=== PATIENT | female | born 1940 | race African-American/Black ===

== ENCOUNTER → 2021-01-03 | Outpatient (CLI) | payer OTHER, MEDICARE ==
[~2021-01-03] VITALS: Ht 172.7 cm; Wt 120.2 kg
[~2021-01-03] MED LIST: BETIMOL5 ML EA. EYE; BYSTOLIC10 MG PO; CALCIUM 500 +1 EAC5 PO; CENTRUM SILVER1 EAC5 PO; FISH OIL 1,001000 M2 PO; GLUCOSAMINE CH1 EAC2 PO; HYDROCHLOROTH12.5 M2 PO; LOSARTAN-HCTZ1 EAC3 PO; LOW DOSE ASPIRI81 M1 PO; NORVASC10 MG PO; RESVERATROL50 MG PO; ROSUVASTATIN CA10 MG PO; TUMERIC; VITAMIN B-121000 MC2 PO; VITAMIN D31250 MCG PO; ZETIA10 MG PO; [UNRECOGNIZED DRUG - OTHER]
[2021-01-03 09:38] VITALS: BP 140/57
--- NOTE | 2021-01-03 10:00 | NUR ---
[facility] Clinic Assessment: 1. History of Osteoarthritis: Not Applicable History of Rheumatoid Arthritis: Not Applicable 2. Height: 5 ft. 8 in. 172.7 cm. Weight: 265.0 lb. oz. 120.204 kg. Patient's BMI: 40.3 3. Vital Signs: BP: 140/57 Pulse: 60 Resp: 18 Temp: 02 Sat: 100 ECG Mon: 4. Pain Intensity: 5 5. Fall Risk: Dizziness: N Needs help standing or walking: N Fallen in the last 3 months: N Fall risk comments: 6. Patient on Blood Thinner: None 7. History of Hypertension: Y 8. Opioid Therapy greater than 6 weeks: Opiate Contract Signed: 9. Risk Assessment Tool Provided: LOW RISK 0 10. Functional Assessment Tool: 11. Recreational Drug Use: Never Drug Type: Tobacco Use: Never Smoker Tobacco Type: Amount or Packs/day: How Many Years: Alcohol Use: No Frequency: Quant:
== END | disposition home or self-care (01) ==
LOC: PAIN 06:48
PROVIDERS: ATTEND Anesthesiology Pain Medicine
DX: M79.18 Myalgia, other site (principal); M54.5 Low back pain; G89.29 Other chronic pain; I10 Essential (primary) hypertension; E78.00 Pure hypercholesterolemia, unspecified; Z98.890 Other specified postprocedural states; Z79.899 Other long term (current) drug therapy; Z79.82 Long term (current) use of aspirin